=== PATIENT | male | born 1985 | race Two or more races ===

== ENCOUNTER 2020-12-18 00:18 | Emergency (ER) | payer SELFPAY ==
[~2020-12-18] VITALS: Ht 180.3 cm; Wt 90.9 kg
[2020-12-18 00:59] VITALS: BP 133/91
[2020-12-18] MEDS ORDERED: SULFAMETHOX/TRIMETH DS 800-160 MG/TABLET PO ONE (01:00)
[2020-12-18] MEDS ORDERED: LIDOCAINE 1%/EPI 1:200,000/PF 30 ML VIAL SQ ONE (01:00)
[2020-12-18 01:10] LABS: GLUCOSE,POINT OF CARE 98 MG/DL (70-110)
== END 2020-12-18 02:27 | disposition home or self-care (01) ==
LOC: EMS 00:20
DX: L02.01 Cutaneous abscess of face (principal); E11.9 Type 2 diabetes mellitus without complications; I10 Essential (primary) hypertension; F12.90 Cannabis use, unspecified, uncomplicated
CPT/HCPCS: 10060; 82962; 99283; J3490